=== PATIENT | male | born 1980 | race African-American/Black ===

== ENCOUNTER 2017-07-19 10:53 | Emergency (ER) | payer OTHER ==
[2017-07-19] MEDS ORDERED: OXYCODONE-ACETAMINOPHEN 5-325 MG TABLET PO ONE (11:59)
[2017-07-19] MEDS ORDERED: CYCLOBENZAPRINE HCL 10 MG TABLET PO ONE (11:59)
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
[2017-07-19 14:55] VITALS: BP 119/87
== END 2017-07-19 14:55 | disposition home or self-care (01) ==
LOC: ER 10:53
DX: S43.401A Unspecified sprain of right shoulder joint, initial encounter (principal); S73.101A Unspecified sprain of right hip, initial encounter; S39.012A Strain of muscle, fascia and tendon of lower back, initial encounter; M25.511 Pain in right shoulder; M79.601 Pain in right arm; M54.2 Cervicalgia; M54.9 Dorsalgia, unspecified; M25.551 Pain in right hip; V43.52XA Car driver injured in collision with other type car in traffic accident, initial encounter; F17.200 Nicotine dependence, unspecified, uncomplicated
CPT/HCPCS: 99284; 73090; 73502; 73060; 72110; 73030; 72070; L3650